=== PATIENT | female | born 1930 | race Caucasian/White ===

== ENCOUNTER 2018-04-28 08:11 | Emergency (ER) | payer OTHER ==
[~2018-04-28] VITALS: Ht 160 cm; Wt 64.4 kg
[~2018-04-28 08:11] MED LIST: ASPIRIN325 MG PO; BISOPROLOL-HCT1 EACH PO; CALCIUM500 MG PO; CIPRO500 MG PO; COZAAR25 MG PO; DAILY VITAMIN1 EAC3 PO; FLAGYL500 MG PO; FLUOXETINE HCL20 M1 PO; NORVASC10 MG PO; OMEGA 3 FISH O1 EACH PO; PRAVASTATIN SOD80 MG PO; TRAZODONE HCL100 MG PO; TRAZODONE HCL50 MG PO; TYLENOL WITH C1 EACH PO; ULTRAM 50MG50 MG PO; VITAMIN C500 M1 PO; VITAMIN D2000 UNI1 PO; VITAMIN E400 UNI2 PO; ZOFRAN ODT4 MG SL
--- NOTE | 2018-04-28 09:46 | Diagnostic Imaging Report ---
Exam: Left Knee 3 views. History: Status post fall, left knee pain Comparison: Left knee films 11/24/2011 Findings: 3 views of the left knee. There is decreased bone mineralization. Negative for acute, displaced fracture or dislocation. 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 No evidence of failure or loosening. No abnormal soft tissue calcification or mass. Small suprapatellar effusion. Impression: 1. Status post total knee replacement with intact hardware. No evidence of failure or loosening. 2. No acute, displaced fracture or dislocation. 3. Small suprapatellar effusion. Signed by: Dr. Jose Toribio M.D. on 04/28/2018 9:43 AM
[2018-04-28] MEDS ORDERED: ONDANSETRON HCL 4 MG ORAL DISINTEGRATING TAB PO ONE (10:00)
[2018-04-28] MEDS ORDERED: IBUPROFEN 400 MG TAB PO ONE (10:00)
[2018-04-28] MEDS ORDERED: HYDROCODONE/APAP 5MG-325MG TAB PO ONE (10:00)
[2018-04-28 10:41] VITALS: BP 127/73
== END 2018-04-28 10:58 | disposition home or self-care (01) ==
LOC: ER 08:11
DX: M25.562 Pain in left knee (principal); S83.422A Sprain of lateral collateral ligament of left knee, initial encounter; W01.0XXA Fall on same level from slipping, tripping and stumbling without subsequent striking against object, initial encounter; R26.2 Difficulty in walking, not elsewhere classified; I10 Essential (primary) hypertension
CPT/HCPCS: 99283

== ENCOUNTER → 2018-07-09 | Day surgery (SDC) | payer OTHER ==
[2018-06-28 14:17] LABS: BASOPHILS # (AUTO) 0.1 (0.0-0.1); BASOPHILS % 0.9 % (0.0-1.0); EOSINOPHILS # (AUTO) 0.5 (0.0-0.4); EOSINOPHILS % 5.9 % (0.0-6.0); HEMATOCRIT 41.7 % (34.2-44.1); LYMPHOCYTES # (AUTO) 2.1 (1.0-3.2); LYMPHOCYTES % 23.8 % (18.0-39.1); MEAN CORPUSCULAR HEMOGLOBIN 31.4 pg (28-32); MEAN CORPUSCULAR HGB CONC 33.6 g/dL (31-35); MEAN CORPUSCULAR VOLUME 93.5 fL (81-99); MONOCYTES # (AUTO) 0.8 (0.2-0.8); MONOCYTES % 9.4 % (4.4-11.3); NEUTROPHILS # (AUTO) 5.2 (2.1-6.9); NEUTROPHILS % 59.7 % (38.7-80.0); PLATELET COUNT 188 x10e3/uL (140-360); RED BLOOD COUNT 4.46 x10e6/uL (3.6-5.1); RED CELL DISTRIBUTION WIDTH 12.3 % (11.7-14.4)
[2018-06-28 14:35] LABS: BLOOD UREA NITROGEN 24 mg/dL (7-26); BUN/CREATININE RATIO 31 (6-25); CALCIUM 10.4 mg/dL (8.4-10.2); CARBON DIOXIDE 25 mmol/L (22-29); CHLORIDE 103 mmol/L (98-107); CREATININE, SERUM 0.78 mg/dL (0.57-1.11); EST GLOMERULAR FILTRATION RATE > 60 ML/MIN (60-); GLUCOSE 100 mg/dL (74-118); SODIUM 137 mmol/L (136-145)
--- NOTE | 2018-06-28 15:19 | Diagnostic Imaging Report ---
EXAMINATION: CHEST 2 VIEWS INDICATION: \S\PRE ADMIT \S\[id number] \S\[id number] COMPARISON: Chest radiograph 09/09/[address] abdomen and pelvis 06/04/2016 FINDINGS: PA and lateral views TUBES and LINES: None. LUNGS: Lungs are well inflated. Subsegmental atelectasis in the medial right lower lobe, new since prior exam. There is no evidence of pneumonia or pulmonary edema. PLEURA: No pleural effusion or pneumothorax. HEART AND MEDIASTINUM: The cardiomediastinal silhouette is unremarkable. BONES AND SOFT TISSUES: No acute osseous lesion. Soft tissues are unremarkable. UPPER ABDOMEN: No free air under the diaphragm. IMPRESSION: Subsegmental atelectasis in the medial right lower lobe. Signed by: Dr. Elza Hayes M.D. on 06/28/2018 3:16 PM
[~2018-07-09] MED LIST changes: +ACETAMINOPHEN 1000 MG/100 ML 100 ML IV ONE; +ACETAMINOPHEN/CODEINE 300MG - 30MG TAB ONE; +ATORVASTATIN CA80 MG PO; +DEXAMETHASONE SOD PHOS INJ 4 MG/ML VIAL ONE; +FENTANYL CITRATE/PF 100MCG/2 ML INJ ONE; +LIDOCAINE HCL 2% LOCAL INJ 5 ML SDV VIAL INJ ONE; +ONDANSETRON HCL INJ 2 MG/ML VIAL ONE; +PROPOFOL IV EMULSION 10 MG/ML 20 ML VIAL ONE; +SEVOFLURANE INHAL SOLN 250 ML PEN BTL ONE
--- NOTE | 2018-07-09 16:29 | Operative Report ---
DATE OF PROCEDURE: July 09, 2018 PREOPERATIVE DIAGNOSIS: Carcinoma of the right breast. POSTOPERATIVE DIAGNOSIS: Carcinoma of the right breast. OPERATIONS PERFORMED: 1. Right upper inner quadrantectomy with preoperative mammographic-guided needle localization and intraoperative specimen mammography. 2. Right axillary sentinel node mapping and biopsy. ANESTHESIA: General. COMPLICATIONS: None. ESTIMATED BLOOD LOSS: Minimal. DESCRIPTION OF PROCEDURE: With the patient lying in bed in the supine position under good general anesthesia, after having undergone a needle localization of the suspicious mass in the upper inner quadrant of the right breast, the right breast and axilla were prepped Betadine solution and draped in the usual manner. The area around the 1 o'clock position of the right breast was then infiltrated with 0.25% Marcaine with epinephrine. An incision was made. It was carried down through the subcutaneous tissue and the wire was then identified and followed to the area in question. The area in question was totally and completely encircled and widely removed, and the specimen was properly labeled and sent for specimen mammography. Specimen mammography revealed that the area in question was completely contained within the specimen. The whole area was thoroughly irrigated. Perfect hemostasis was ascertained. The breast tissue was then reapproximated with interrupted sutures of 2-0 chromic and the skin was closed with subcuticular 5-0 Vicryl. The patient had undergone a preoperative sentinel node mapping and the area in question was then identified and infiltrated with 0.25% Marcaine with epinephrine. An incision was made at the base of the right axilla, carried down through the subcutaneous tissue and through the superficial fascia and there were 2 lymph node groupings that were clearly and easily identifiable with the Neoprobe. Both of these were totally and completely removed. All bleeding points were electrocoagulated or ligated with 2-0 Vicryl and the specimen of sentinel nodes x2 were sent for pathological examination. The whole area was thoroughly irrigated. Perfect hemostasis was ascertained. The subcutaneous tissue and superficial fascia were approximated with interrupted sutures of 2-0 chromic and the skin was closed with subcuticular 5-0 Vicryl. Benzoin, Steri-Strips and dressings were applied. The sponge, lap and needle count was correct. Patient tolerated both procedures well and returned to the recovery room in stable condition. Job#: [id number] [place]
[2018-07-09 16:55] VITALS: BP 133/67
--- NOTE | 2018-07-11 09:34 | Diagnostic Imaging Report ---
#[id number] - [id number] SPECIMEN: 07/09/2018 Correlation is made to exams dated: 07/09/2018 localization - [facility] and 05/29/2018 mammogram - [facility]. The specimen contains the marker clip. IMPRESSION: SPECIMEN Follow-up with ACR/ACS guidelines. Jose Antonio Chaney Jr., D.O. cw/:07/10/2018 14:25:33 Catering Associate: Darlyn MCDANIEL(Antonio)(Franky), [facility]
--- NOTE | 2018-07-11 09:34 | Diagnostic Imaging Report ---
#[id number] - [id number] NEEDLE LOCALIZATION: 07/09/2018 PROCEDURE DESCRIPTION: The patient had a stereotactic biopsy of the right breast, at 3:00. Mammograms show a biopsy marker clip at the lesion location. Preoperative localization was requested. Written informed written consent was obtained from the patient, and a formal time out was taken to confirm patient identity and procedure to be perfomed. Using sterile technique, 1% lidocaine local anesthesia, and mammographic guidance, the biopsy clip was preoperatively localized with a hookwire. Final CC and LM mammograms were obtained to document wire location. A sterile bandage was placed over the wire and the patient was transferred from mammography with no immediate complications noted. Correlation is made to exams dated: 05/29/2018 mammogram and 05/29/2018 ultrasound biopsy - [facility]. IMPRESSION: NEEDLE LOCALIZATION Follow-up with ACR/ACS guidelines. Jose Antonio Chaney Jr., D.O. cw/:07/10/2018 14:24:35 Vacuum Cleaner Repairer: Darlyn PATTERSON)(Franky), [facility] [id number]
== END | disposition home or self-care (01) ==
LOC: OR 07:40
PROVIDERS: ATTEND Surgery
DX: D05.11 Intraductal carcinoma in situ of right breast (principal); Z17.0 Estrogen receptor positive status [ER+]; I10 Essential (primary) hypertension; F41.9 Anxiety disorder, unspecified; M19.90 Unspecified osteoarthritis, unspecified site; E78.4 Other hyperlipidemia; Z88.2 Allergy status to sulfonamides; Z01.810 Encounter for preprocedural cardiovascular examination; Z01.812 Encounter for preprocedural laboratory examination; Z01.811 Encounter for preprocedural respiratory examination
CPT/HCPCS: 19281; 19301; 36415; 38500; 71046; 76098; 80048; 85025; 88305; 88307; 93005; C1769; J1100; J2001; J2405

== ENCOUNTER 2018-11-11 08:08 | Emergency (ER) | payer OTHER ==
[~2018-11-11] VITALS: Ht 160 cm; Wt 64.4 kg
[~2018-11-11 08:08] MED LIST changes: -ACETAMINOPHEN 1000 MG/100 ML 100 ML IV ONE; -ACETAMINOPHEN/CODEINE 300MG - 30MG TAB ONE; -DEXAMETHASONE SOD PHOS INJ 4 MG/ML VIAL ONE; -FENTANYL CITRATE/PF 100MCG/2 ML INJ ONE; -LIDOCAINE HCL 2% LOCAL INJ 5 ML SDV VIAL INJ ONE; -ONDANSETRON HCL INJ 2 MG/ML VIAL ONE; -PROPOFOL IV EMULSION 10 MG/ML 20 ML VIAL ONE; -SEVOFLURANE INHAL SOLN 250 ML PEN BTL ONE
[2018-11-11 08:43] LABS: CLARITY,URINE CLEAR (CLEAR); COLOR,URINE YELLOW (YELLOW); LEUKOCYTE ESTERASE ,URINE NEGATIVE (NEGATIVE); NITRITE,URINE NEGATIVE (NEGATIVE); PROTEIN,URINE DIPSTICK NEGATIVE (NEGATIVE)
[2018-11-11 08:44] LABS: BILIRUBIN,URINE NEGATIVE (NEGATIVE); KETONES,URINE NEGATIVE (NEGATIVE); URINE UROBILINOGEN 0.2 mg/dL (0.2 - 1)
[2018-11-11 08:52] LABS: RBC,URINE 0-5 /HPF (0-5)
[2018-11-11] MEDS ORDERED: KETOROLAC TROMETHAMINE 30 MG/ML VIAL IV NR (09:07)
[2018-11-11] MEDS ORDERED: DIAZEPAM 5 MG TAB PO NR (09:15)
[2018-11-11] MEDS ORDERED: KETOROLAC TROMETHAMINE 60 MG/2 ML VIAL IM NR (11:45)
[2018-11-11 12:52] VITALS: BP 146/78
--- NOTE | 2018-11-11 14:58 | Diagnostic Imaging Report ---
Pt name: Bonita Colon : 1- CT LUMBAR SPINE WO CONTRAST HISTORY: Back pain COMPARISON: CT of the abdomen/pelvis 06/04/2016 TECHNIQUE: Axial CT images of the lumbar spine were obtained without contrast. Coronal and sagittal reconstructions obtained from the axial data. One or more of the following dose reduction techniques were used: Automated exposure control, adjustment of the mA and/or kV according to patient size, and/or utilization of iterative reconstruction technique. DISCUSSION: Bone demineralization limits evaluation. There are 5 nonrib-bearing lumbar vertebral bodies. Lumbar lordosis is preserved. Subtle lumbar dextroscoliosis is centered at L3. There is no significant subluxation. No definite acute fracture or compression deformity is seen. is seen. No gross spinal canal mass is seen. There is paraspinal muscle atrophy at the lumbosacral junction. The paravertebral and paraspinal soft tissues are otherwise unremarkable. Multilevel advanced spondylotic changes are most prominent at L4-L5 and L5-S1. There are moderate degenerative changes in the bilateral sacroiliac joints with partial fusion. L1-L2: Disc bulge without gross canal or foraminal stenosis. L2-L3: Disc bulge without gross canal or foraminal stenosis. L3-L4: At least mild canal stenosis due to disc bulge and ligamentum flavum thickening. Mild right and moderate left foraminal stenoses due to disc bulge and facet arthrosis. L4-L5: At least mild canal stenosis due to disc bulge and ligamentum flavum thickening. Mild to moderate bilateral foraminal stenoses due to disc bulge and facet arthrosis. L5-S1: Moderate to severe right and mild to moderate left foraminal stenoses due to disc bulge and facet arthrosis. No gross canal stenosis. A few small partially visualized fluid density lesion in the right hepatic lobe may be cysts. Surgical clips are seen at the gallbladder fossa. Right renal pelviectasis is present. Aortoiliac calcified atherosclerosis is present. IMPRESSION: 1. No acute osseous abnormalities. 2. Multilevel advanced spondylosis, most prominent at L4-L5 and L5-S1. Subtle dextroscoliosis is centered at L3. 3. Multilevel bilateral degenerative foraminal stenoses - moderate on the left at L3-L4 and moderate to severe on the right at L5-S1. 4. At least mild degenerative canal stenoses at L3-L4 and L4-L5. Signed by: Dr. Nik Armas M.D. on 11/11/2018 2:54 PM
== END 2018-11-11 12:55 | disposition home or self-care (01) ==
LOC: ER 08:08
DX: M54.5 Low back pain (principal); S39.012A Strain of muscle, fascia and tendon of lower back, initial encounter; M43.06 Spondylolysis, lumbar region; I10 Essential (primary) hypertension; Z86.73 Personal history of transient ischemic attack (TIA), and cerebral infarction without residual deficits
CPT/HCPCS: 72131; 81001; 99283; J1885

== ENCOUNTER 2018-12-02 18:44 | Emergency (ER) | payer MEDICARE ==
[~2018-12-02] VITALS: Ht 160 cm; Wt 64.4 kg
--- NOTE | 2018-12-02 20:45 | Diagnostic Imaging Report ---
Exams: Head and cervical spine CTs without IV contrast History: Trauma, fall, hit back of head Comparison studies: None available at the time of dictation. Technique: Axial images were obtained from the brain and cervical spine. Coronal and sagittal images reconstructed from the axial data. Dose modulation, iterative reconstruction, and/or weight based adjustment of the mA/kV was utilized to reduce the radiation dose to as low as reasonably achievable. Intravenous contrast: None Findings: Head CT: Scalp: Mild occipital scalp swelling. Bones: No fractures, blastic or lytic lesions. Extra-axial spaces: No masses. No fluid collections. Brain sulci: Appropriate for age. Ventricles: Normal in size and configuration. No hydrocephalus. Parenchyma: No mass, acute hemorrhage or acute cortical vascular insults. A few scattered and mildly confluent hypodensities in the supratentorial white matter are nonspecific but most compatible with chronic microvascular ischemic changes. There is a chronic lacunar infarct along the left thalamic capsular junction. Sellar/suprasellar region: No abnormalities. Craniocervical junction: The foramen magnum is patent. No Chiari one malformation. Cervical spine CT: Fractures: None. Soft tissues: No gross acute abnormalities. Atlantoaxial articulation: Intact. Alignment: Straightened cervical curvature may be positional. Minimal degenerative retrolisthesis of C4 on C5 and retrolisthesis of C5 on C6 Cervicomedullary junction: No abnormalities. The foramen magnum is patent. Vertebrae: No infection or neoplasm. Degenerative changes: Advanced degenerative changes at the at the atlantodental articulation and basion-dental interval with degenerative ossification with retrodental ligamentous thickening and calcification. Multilevel disc degeneration, worse/moderate at C5-C6 and at C6-C7. Small anterior osteophytes from C4 to C7 indent the prevertebral soft tissues. Posterior disc osteophyte complexes from C4 to C7 indent the thecal sac but do not result in significant canal stenosis. Advanced multilevel facet arthrosis with fused facets on the right from C2 to C5 and on the left at C3-C4. Uncovertebral and facet arthrosis result in multilevel foraminal stenosis (mild bilaterally at C3-C4, severe right C4-C5, moderate bilaterally at C5-C6, moderate left and mild right at C6-C7). Incidental findings: Lens replacements for previous cataract surgery. After carotid calcifications in the carotid siphons, common carotid arteries and in the left greater than right bulbs. Anatomical variant, slight retropharyngeal course of the ICA origins. IMPRESSION: Head CT: 1. Occipital scalp swelling without underlying fracture.. 2. No acute intracranial abnormalities. 3. Mild generalized volume loss. 4. Unchanged mild to moderate supratentorial chronic microvascular ischemic changes and chronic left thalamocapsular lacunar infarct. Cervical spine CT: 1. No acute abnormalities. 2. Advanced multilevel degenerative changes. 3. Cannot exclude ligament, spinal cord and or vascular abnormalities on the basis of this examination. Signed by: Dr. Hayes Gramajo M.D. on 12/02/2018 8:42 PM
[2018-12-02] MEDS ORDERED: HYDROCODONE/APAP 5MG-325MG TAB ONE (22:20)
[2018-12-02 22:28] VITALS: BP 147/51
[2018-12-02] MEDS ORDERED: HYDROCODONE/APAP 5MG-325MG TAB PO ONE (22:45)
== END 2018-12-02 22:37 | disposition home or self-care (01) ==
LOC: ER 18:44
DX: S00.83XA Contusion of other part of head, initial encounter (principal); W01.0XXA Fall on same level from slipping, tripping and stumbling without subsequent striking against object, initial encounter; Y93.E1 Activity, personal bathing and showering; Y92.002 Bathroom of unspecified non-institutional (private) residence as the place of occurrence of the external cause; I10 Essential (primary) hypertension; K21.9 Gastro-esophageal reflux disease without esophagitis; E78.5 Hyperlipidemia, unspecified; Z86.73 Personal history of transient ischemic attack (TIA), and cerebral infarction without residual deficits
CPT/HCPCS: 70450; 72125; 99283

== ENCOUNTER → 2018-12-07 | Outpatient (CLI) | payer MEDICARE ==
[~2018-12-07] MED LIST changes: +IOPAMIDOL 370 MG/ML 200 ML INFUS..BTL INJ ONE; +SODIUM CHLORIDE 0.9% 100 ML 100 ML ONE
[2018-12-07 15:15] LABS: BLOOD UREA NITROGEN 15 mg/dL (7-26); BUN/CREATININE RATIO 22 (6-25); CREATININE, SERUM 0.67 mg/dL (0.57-1.11); EST GLOMERULAR FILTRATION RATE > 60 ML/MIN (60-)
--- NOTE | 2018-12-07 16:45 | Diagnostic Imaging Report ---
CTA NECK HISTORY: Carotid stenosis COMPARISON: Head and cervical spine CT 12/02/2018 TECHNIQUE: CTA of the neck was performed with intravenous iodine based contrast. Coronal, sagittal, and oblique maximum intensity projection reformations were created. One or more of the following dose reduction techniques were used: Automated exposure control, adjustment of the mA and/or kV according to patient size, and/or utilization of iterative reconstruction technique. 100 mL of Isovue-370 were administered. DISCUSSION: If present, any cervical carotid stenosis will be measured as a percentage relative to the [place] artery distal to the stenosis. There are mild calcifications in the aortic arch and proximal great vessels. Right Carotid: There is mild calcified plaque at the right carotid bulb without significant stenosis. The right internal carotid artery has a retropharyngeal course. Left Carotid: Severe calcified plaque at the left carotid bulb causes near complete focal occlusion of the proximal left internal carotid artery (greater than 90% focal stenosis). The left internal carotid artery has a retropharyngeal course. Right vertebral artery: There is minimal calcification in the V1 and V2 segments. Otherwise patent and without abnormalities. The right vertebral artery is dominant. Left vertebral artery: Patent, no abnormalities. The left vertebral artery terminates as the left posterior inferior cerebellar artery, which is a normal variant. The intracranial arterial vasculature is partially visualized. Bilateral carotid siphon calcifications are present. 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 There is persistent circulation on the left. Additional findings: Both ocular lenses are thinned. The thyroid gland is atrophic with a few small hypodense nodules measuring up to 0.7 cm on the right. There are advanced degenerative changes throughout the cervical spine IMPRESSION: 1. Severe calcified plaque at the left carotid bulb causes near complete focal occlusion of the proximal left internal carotid artery (greater than 90% focal stenosis). 2. Mild right carotid bulb calcified plaque without significant stenosis. 3. Minimal cervical right vertebral artery calcification without significant stenosis. 4. 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 5. origin of the left posterior cerebral artery, a normal variant. Signed by: Dr. Nik Armas M.D. on 12/07/2018 4:42 PM
== END ==
LOC: CT 14:28
PROVIDERS: ATTEND Thoracic Surgery (Cardiothoracic Vascular Surgery)
DX: I65.23 Occlusion and stenosis of bilateral carotid arteries (principal)
CPT/HCPCS: 36415; 70498; 82565; 84520; Q9967

== ENCOUNTER → 2018-12-17 | Outpatient (CLI) | payer MEDICARE ==
[~2018-12-17] MED LIST changes: +ANASTROZOLE1 MG PO; +GELATIN SPONGE 12-7MM ONE; +HEPARIN SOD (PORCINE) 1000 UNIT/ML 30ML ONE; +HEPARIN SOD/SOD CHLORIDE 1,000 ML ONE; -IOPAMIDOL 370 MG/ML 200 ML INFUS..BTL INJ ONE; +LIDOCAINE HCL (LTA) 4 ML SOLN ONE; +LIDOCAINE HCL 1% 2 ML AMP ONE; +MUPIROCIN 2% OINT 22 GM TUBE ONE; +PROLIA60 MG/1 ML SC; +PROTAMINE SULFATE 10 MG/ML 5 ML VIAL ONE; -SODIUM CHLORIDE 0.9% 100 ML 100 ML ONE; +SODIUM CHLORIDE 0.9% 500ML 500 ML ONE; +THROMBIN FOR SOLN 5,000 UNIT VIAL ONE; +ZETIA10 MG PO; +[UNRECOGNIZED DRUG - OTHER] PO
== END ==
LOC: RAD 14:33
PROVIDERS: ATTEND Anesthesiology
DX: Z01.810 Encounter for preprocedural cardiovascular examination (principal)
CPT/HCPCS: 93306

== ENCOUNTER 2018-12-18 10:55 | Inpatient (IN) | payer MEDICARE ==
[2018-12-17 13:09] LABS: BASOPHILS # (AUTO) 0.1 (0.0-0.1); BASOPHILS % 0.9 % (0.0-1.0); EOSINOPHILS # (AUTO) 0.3 (0.0-0.4); EOSINOPHILS % 4.5 % (0.0-6.0); HEMATOCRIT 40.6 % (34.2-44.1); HEMOGLOBIN 13.6 g/dL (12.0-16.0); LYMPHOCYTES # (AUTO) 1.2 (1.0-3.2); LYMPHOCYTES % 17.4 % (18.0-39.1); MEAN CORPUSCULAR HEMOGLOBIN 31.2 pg (28-32); MEAN CORPUSCULAR HGB CONC 33.5 g/dL (31-35); MEAN CORPUSCULAR VOLUME 93.1 fL (81-99); MONOCYTES # (AUTO) 0.7 (0.2-0.8); MONOCYTES % 10.1 % (4.4-11.3); NEUTROPHILS # (AUTO) 4.6 (2.1-6.9); NEUTROPHILS % 66.8 % (38.7-80.0); PLATELET COUNT 200 x10e3/uL (140-360); RED BLOOD COUNT 4.36 x10e6/uL (3.6-5.1); RED CELL DISTRIBUTION WIDTH 12.8 % (11.7-14.4)
[2018-12-17 13:21] LABS: INR 1.01; PROTHROMBIN TIME 13.8 seconds (11.9-14.5)
[2018-12-17 13:22] LABS: ANION GAP 11.1 mmol/L (8-16); BLOOD UREA NITROGEN 21 mg/dL (7-26); BUN/CREATININE RATIO 32 (6-25); CALCIUM 9.4 mg/dL (8.4-10.2); CARBON DIOXIDE 25 mmol/L (22-29); CHLORIDE 107 mmol/L (98-107); CREATININE, SERUM 0.66 mg/dL (0.57-1.11); EST GLOMERULAR FILTRATION RATE > 60 ML/MIN (60-); GLUCOSE 99 mg/dL (74-118); PARTIAL THROMBOPLASTIN TIME 37.1 seconds (23.8-35.5); POTASSIUM 4.1 mmol/L (3.5-5.1); SODIUM 139 mmol/L (136-145)
[~2018-12-18] VITALS: Ht 160 cm; Wt 63.0 kg
[~2018-12-18 10:55] MED LIST changes: -ANASTROZOLE1 MG PO; -GELATIN SPONGE 12-7MM ONE; -HEPARIN SOD (PORCINE) 1000 UNIT/ML 30ML ONE; -HEPARIN SOD/SOD CHLORIDE 1,000 ML ONE; -LIDOCAINE HCL (LTA) 4 ML SOLN ONE; -LIDOCAINE HCL 1% 2 ML AMP ONE; -MUPIROCIN 2% OINT 22 GM TUBE ONE; -PROLIA60 MG/1 ML SC; -PROTAMINE SULFATE 10 MG/ML 5 ML VIAL ONE; -SODIUM CHLORIDE 0.9% 500ML 500 ML ONE; -THROMBIN FOR SOLN 5,000 UNIT VIAL ONE; -ZETIA10 MG PO; -[UNRECOGNIZED DRUG - OTHER] PO
[2018-12-18] MEDS ORDERED: ZETIA10 MG PO (12:25)
[2018-12-18] MEDS ORDERED: ANASTROZOLE1 MG PO (12:26)
[2018-12-18] MEDS ORDERED: [UNRECOGNIZED DRUG - OTHER] PO (12:26)
[2018-12-18] MEDS ORDERED: PROLIA60 MG/1 ML SC (12:27)
[2018-12-18] MEDS ORDERED: VANCOMYCIN 1GM/NS 250 ML 250 ML ONE (13:14)
--- NOTE | 2018-12-18 14:35 | Progress Note ---
DATE: 12/18/2018 Cardiology Consultation REASON FOR CONSULTATION: Perioperative cardiovascular management. CONSULTING PHYSICIAN: Micah Cruz, Interventional Cardiology. HISTORY OF PRESENT ILLNESS: Ms. Colon is a pleasant 88-year-old woman with history of hypertension, remote history of CVA 20 years ago, and dyslipidemia, who presents to [facility] for elective left carotid artery endarterectomy to be performed by Dr. Hirsch today. We have been asked to assist with perioperative management. Bonita denies any chest discomfort or shortness of breath; denies lightheadedness, palpitations, syncope, leg edema or leg discomfort. She is able to ambulate at home with no exertional complaints. She has been otherwise somewhat sedentary. She denies any prior history of cardiac conditions. EKG shows normal sinus rhythm with nonspecific repolarization abnormalities, possibly related to left ventricular hypertrophy. Her echocardiogram reveals preserved left ventricular systolic function with aortic valve sclerosis without stenosis and mild atrioventricular valve insufficiency. REVIEW OF SYSTEMS: A 12-system review is negative except for as noted above. PAST MEDICAL HISTORY: As per HPI. SOCIAL HISTORY: Former smoker, quit many decades ago. No alcohol or drugs. FAMILY HISTORY: Per family's report. Daughter is at bedside. PHYSICAL EXAMINATION: VITAL SIGNS: Afebrile. Blood pressure 154/82, respiratory rate 18, heart rate 65. GENERAL: In no acute distress, alert. NECK: No JVD. Left carotid bruit. CHEST: Clear to auscultation. CARDIOVASCULAR: Regular rate and rhythm. Normal S1 and S2. No S3 or S4. Systolic ejection murmur. ABDOMEN: Soft, nontender. EXTREMITIES: No edema. Warm distal extremities. HOME MEDICATIONS: Reviewed. AVAILABLE STUDIES: Reviewed. ASSESSMENT: 1. Left carotid artery critical stenosis. 2. Aortic valve sclerosis without stenosis. 3. Hypertension. 4. Remote history of cerebrovascular accident. RECOMMENDATIONS: 1. The patient has moderate risk for adverse cardiovascular outcomes with carotid surgery. 2. Perioperative beta-blockers with esmolol drip is advised and discussed with the Anesthesia team to manage her perioperative risk. In the perioperative period, labile heart rate and blood pressure should be managed with short half-time medication drips including p.r.n. atropine, p.r.n. dopamine, p.r.n. nitroglycerin/nicardipine and p.r.n. esmolol depending on fluctuation with close monitoring in the ICU postoperatively. Antiplatelet therapy and statin therapy are also advised in the perioperative period. We will follow closely. I have discussed with ICU staff once patient is received to please call me with any questions or concerns with regard to her cardiovascular management. Questions addressed today with the patient and daughter. MD SILVINA Johns/PILYL /[id number]
[2018-12-18] MEDS ORDERED: FENTANYL CITRATE/PF 100MCG/2 ML INJ ONE ×2 (16:02→18:36)
[2018-12-18] MEDS ORDERED: PROPOFOL IV EMULSION 10 MG/ML 20 ML VIAL ONE (17:35)
[2018-12-18] MEDS ORDERED: ONDANSETRON HCL INJ 2MG/ML 2ML 2 MG/ML VIAL ONE (17:35)
[2018-12-18] MEDS ORDERED: EPHEDRINE SULFATE INJ 50 MG/10 ML SYR ONE (17:35)
[2018-12-18] MEDS ORDERED: ROCURONIUM BROMIDE 10 MG/ML 5ML VIAL ONE (17:35)
[2018-12-18] MEDS ORDERED: DEXAMETHASONE SOD PHOS INJ 4 MG/ML VIAL ONE (17:35)
[2018-12-18] MEDS ORDERED: DESFLURANE 240 ML BTL INH ONE (17:35)
[2018-12-18 17:36] LABS: BASOPHILS % 0.4 % (0.0-1.0); EOSINOPHILS # (AUTO) 0.1 (0.0-0.4); EOSINOPHILS % 0.6 % (0.0-6.0); HEMATOCRIT 36.3 % (34.2-44.1); HEMOGLOBIN 12.3 g/dL (12.0-16.0); LYMPHOCYTES # (AUTO) 0.8 (1.0-3.2); MEAN CORPUSCULAR HEMOGLOBIN 31.1 pg (28-32); MEAN CORPUSCULAR HGB CONC 33.9 g/dL (31-35); MEAN CORPUSCULAR VOLUME 91.9 fL (81-99); MONOCYTES # (AUTO) 0.4 (0.2-0.8); MONOCYTES % 4.5 % (4.4-11.3); NEUTROPHILS # (AUTO) 8.3 (2.1-6.9); NEUTROPHILS % 86.2 % (38.7-80.0); PLATELET COUNT 158 x10e3/uL (140-360); RED BLOOD COUNT 3.95 x10e6/uL (3.6-5.1); RED CELL DISTRIBUTION WIDTH 12.6 % (11.7-14.4)
[2018-12-18 17:55] LABS: ALANINE AMINOTRANSFERASE 316 IU/L (0-55); ALBUMIN 3.4 g/dL (3.5-5.0); ALBUMIN/GLOBULIN RATIO 1.3 (0.8-2.0); ALKALINE PHOSPHATASE 83 IU/L (40-150); ANION GAP 11.7 mmol/L (8-16); BLOOD UREA NITROGEN 16 mg/dL (7-26); BUN/CREATININE RATIO 30 (6-25); CALCIUM 8.5 mg/dL (8.4-10.2); CARBON DIOXIDE 21 mmol/L (22-29); CHLORIDE 109 mmol/L (98-107); CREATININE, SERUM 0.54 mg/dL (0.57-1.11); EST GLOMERULAR FILTRATION RATE > 60 ML/MIN (60-); GLUCOSE 155 mg/dL (74-118); POTASSIUM 3.7 mmol/L (3.5-5.1); SODIUM 138 mmol/L (136-145)
[2018-12-18] MEDS ORDERED: KETAMINE HCL INJ 50 MG/ML 10 ML VIAL ONE (18:36)
[2018-12-18] MEDS ORDERED: MIDAZOLAM HCL 2 MG/2 ML VIAL ONE (18:36)
--- NOTE | 2018-12-18 20:48 | NUR ---
PATIENT WAS TRANSFERRED TO ROOM 193. ORDERS TO BE PLACED IN COMPUTER. IN EMAR VANCOMYCIN NOT CHARTED GIVEN. CALLED PHARMACY TO ASK IF IT WAS DRAWN. RADHA LEYVA WITHDREW THE VANCOMYCIN AT 1312.
[2018-12-18 20:50] VITALS: BP 128/61
[2018-12-18 21:00] VITALS: BP 127/56
--- NOTE | 2018-12-18 21:15 | NUR ---
RECEIVED REPORT SOON AFTER MY SHIFT STARTED ON THIS PATIENT FROM PACU. RUSHED REPORT GIVEN. CURRENTLY WAITING FOR ROOM TO BE CLEANED
[2018-12-18] MEDS ORDERED: HYDROCODONE/APAP 5MG-325MG TAB PO PRN (21:30)
--- NOTE | 2018-12-18 21:30 | NUR ---
CALLED DR DU PER DAYSHIFT WHEN PATIENT ARRIVED TO THE UNIT. UPDATED HIM ON PATIENT CARE AND VITAL SIGNS. NEW ORDERS RECEIVED AND NOTED. START A NITRO DRIP PER PROTOCOL IF PATIENTs SBP IS GREATER THAN 170 IF LESS THAN 90 TO START LEVOPHED DRIP PER PROTOCOL, GIVE ATROPINE 0.5MG Q1H PRN IF HEART RATE LESS THAN 50. I ALSO INFORMED HIM THAT PATIENTs RIGHT EYE IS VERY RED AND IRRITATED AND PACU WAS AWARE OF THIS ISSUE AND HAD WASHED HER EYE WITH NS. ORDER FOR NATURAL TEARS PRN. ALL ORDERS WERE READ BACK AND CONFIRMED
[2018-12-18] MEDS ORDERED: VANCOMYCIN 1GM/NS 250 ML 250 ML IV ONE (21:45)
[2018-12-18] MEDS ORDERED: ONDANSETRON HCL INJ 2MG/ML 2ML 2 MG/ML VIAL IV PRN (21:45)
[2018-12-18] MEDS ORDERED: SODIUM CHLORIDE 0.9% 1000ML 1,000 ML IV SCH (21:45)
[2018-12-18] MEDS ORDERED: LABETALOL HCL 20 MG/4 ML SYRINGE IV PRN (21:45)
--- NOTE | 2018-12-18 21:50 | NUR ---
CALLED AND SPOKE WITH THE PATIENTs DAUGHTER ENSURING SHE WAS OK WITH DR DU FOLLOWING HER CASE OR DID SHE REQUEST UJSTINA. SHE STATED NO THAT HER MOTHER NEVER HAD A VERIFYING SPECIALIST BEFORE AND THAT DR DU CAN CONTINUE TO FOLLOW THE PATIENT. SO ORDERS TO CONSULT DR HORN IS DC'D AND CONSULTING VERIFYING SPECIALIST FOR ANA LAURA IS ORDERED.
[2018-12-18 22:00] VITALS: BP 117/49
[2018-12-18] MEDS: MORPHINE SULFATE INJ 4 MG/ML INJ 1ML IV PRN (22:13)
[2018-12-18 23:00] VITALS: BP 134/60
[2018-12-18 23:16] LABS: BASOPHILS % 0.2 % (0.0-1.0); EOSINOPHILS # (AUTO) 0.2 (0.0-0.4); HEMATOCRIT 36.4 % (34.2-44.1); HEMOGLOBIN 12.2 g/dL (12.0-16.0); LYMPHOCYTES # (AUTO) 0.8 (1.0-3.2); LYMPHOCYTES % 8.3 % (18.0-39.1); MEAN CORPUSCULAR HEMOGLOBIN 30.4 pg (28-32); MEAN CORPUSCULAR HGB CONC 33.5 g/dL (31-35); MEAN CORPUSCULAR VOLUME 90.8 fL (81-99); MONOCYTES # (AUTO) 0.7 (0.2-0.8); MONOCYTES % 7.7 % (4.4-11.3); NEUTROPHILS # (AUTO) 7.6 (2.1-6.9); NEUTROPHILS % 81.6 % (38.7-80.0); PLATELET COUNT 171 x10e3/uL (140-360); RED BLOOD COUNT 4.01 x10e6/uL (3.6-5.1); RED CELL DISTRIBUTION WIDTH 12.4 % (11.7-14.4)
[2018-12-18 23:30] LABS: ALANINE AMINOTRANSFERASE 1030 IU/L (0-55); ALBUMIN 3.4 g/dL (3.5-5.0); ALBUMIN/GLOBULIN RATIO 1.3 (0.8-2.0); ALKALINE PHOSPHATASE 104 IU/L (40-150); ANION GAP 11.8 mmol/L (8-16); BLOOD UREA NITROGEN 16 mg/dL (7-26); CALCIUM 8.5 mg/dL (8.4-10.2); CARBON DIOXIDE 22 mmol/L (22-29); CHLORIDE 107 mmol/L (98-107); GLUCOSE 128 mg/dL (74-118); POTASSIUM 3.8 mmol/L (3.5-5.1); SODIUM 137 mmol/L (136-145)
[2018-12-19] VITALS (17 sets, daily range): BP systolic 107–167; BP diastolic 59–93
[2018-12-19 00:29] LABS: BUN/CREATININE RATIO 29 (6-25)
[2018-12-19 00:42] LABS: CREATININE, SERUM 0.54 mg/dL (0.57-1.11); EST GLOMERULAR FILTRATION RATE > 60 ML/MIN (60-)
--- NOTE | 2018-12-19 00:49 | NUR ---
BOTH CONSULTING DOCTORS WERE NOTIFIED, DR MONTELONGO AND DR DU
[2018-12-19] MEDS: MORPHINE SULFATE INJ 4 MG/ML INJ 1ML IV PRN (02:07)
--- NOTE | 2018-12-19 02:48 | Operative Report ---
DATE OF PROCEDURE: 12/18/2018 SURGEON: Yair Hirsch MD ANODE BUILDER: Eric Mckeon. PREOPERATIVE DIAGNOSIS: Severe left carotid artery stenosis. POSTOPERATIVE DIAGNOSIS: Severe left carotid artery stenosis. TITLE OF OPERATION: Left carotid endarterectomy. DESCRIPTION OF OPERATION: After the satisfactory accomplishment of general anesthesia, the patient's left neck was prepped and draped in a sterile fashion. A standard left carotid incision was made along the anterior border of the sternomastoid muscle. The incision was carried down through the subcutaneous tissues and fascia to expose the left common carotid artery. The vessel was dissected free from the surrounding tissues and looped with the vessel loop. The dissection was carried distally to expose the internal carotid artery and the external carotid artery and its branches. Care was taken to identify and preserve all nerve structures in the region. Systemic heparin was given through a central vein canula for the purposes of anticoagulation. The common external and internal carotid arteries were briefly crossclamped. A long incision was made in the common carotid artery and carried distally through the bifurcation and well up into the internal carotid artery. A severely obstructing, ulcerated plaque was quickly located in the right carotid artery. The plaque extended well up into the internal carotid artery. The plaque was carefully removed using standard endarterectomy techniques. Following this, an indwelling shunt was inserted into the common carotid artery proximally and the internal carotid artery distally, thereby re-establishing blood flow to the right side of the brain for the remainder of the case. The surface of the vessel was then smoothed and all loose debris was carefully removed. Heparinized saline flushes were routinely employed. A previously constructed Dacron patch was brought into the operative field and used to close the arteriotomy site. Running 7-0 Prolene was used to for this patch closure. Prior to completing the closure, the shunt was removed and the vessel was flushed free from all air and debris. Once the sutures were tied, excellent pulses were located within the patch area and beyond. Protamine was given to counteract the effects of the heparin. The wound was thoroughly irrigated with antibiotic solution and closed in layers with interrupted 2-0 Vicryl for the deep tissues, running 2-0 Vicryl for the subcutaneous tissues, and a Monocryl subcuticular stitch for the skin. The patient tolerated the procedure well and was returned to the Intensive Care Unit in good condition. MD JUDE Damon/NASIR /[id number]
--- NOTE | 2018-12-19 04:00 | NUR ---
WHILE I WAS ON BREAK, FERNANDA RN-CHARGE NURSE CALLED FOR ME TO COME BACK THAT THIS PATIENT HAD REMOVED HER ARTERIAL LINE. ONCE ARRIVING INTO THE PATIENTs ROOM, PATIENT SITTING ON SIDE OF THE BED. PRESSURE APPLIED TO RIGHT RADIAL ARTERY SITE, THEN COVERED WITH GAUZE AND WRAPPED WITH COBAN DRESSING. CHANGED LINEN, LIGHT SPONGE BATH GIVEN TO PATIENT AND A NEW GOWN PLACED ON PATIENT AND PLACED BACK INTO BED WITH MILK COLLECTOR IN PLACE PATIENT HAS BECOME MORE CONFUSED THROUGH THE NIGHT. PATIENT SEEMS TO HAVE A INTOLERANCE TO MORPHINE. WILL HAVE MORPHINE DC'D FROM PATIENTs ORDERS. I CLEANED AND WIPED DOWN TABLES AND BED INCLUDING FLOOR WHERE BLOOD WAS DROPPED. CALLED PATIENTs DAUGHTER AND ASKED IF SHE COULD COME AND THAT THE PATIENT WAS WANTED HER TO COME SIT WITH HER, INFORMING THE DAUGHTER OF THIS INCIDENT AT THAT TIME. Addendum: 12/19/18 at 0616 by Blessing Ren RN PATIENT HAD REMOVED DRESSING TO LEFT SIDE OF NECK. I PLACED ANOTHER DRY DRESSING TO AREA AND PLACED THE ICE PACK BACK ON TOP OF DRESSING.
[2018-12-19 05:07] LABS: BASOPHILS % 0.4 % (0.0-1.0); EOSINOPHILS % 0.1 % (0.0-6.0); HEMATOCRIT 36.4 % (34.2-44.1); HEMOGLOBIN 12.1 g/dL (12.0-16.0); LYMPHOCYTES # (AUTO) 1.3 (1.0-3.2); LYMPHOCYTES % 13.1 % (18.0-39.1); MEAN CORPUSCULAR HEMOGLOBIN 30.9 pg (28-32); MEAN CORPUSCULAR HGB CONC 33.2 g/dL (31-35); MEAN CORPUSCULAR VOLUME 92.9 fL (81-99); MONOCYTES # (AUTO) 1.1 (0.2-0.8); MONOCYTES % 10.7 % (4.4-11.3); NEUTROPHILS # (AUTO) 7.4 (2.1-6.9); NEUTROPHILS % 75.5 % (38.7-80.0); PLATELET COUNT 179 x10e3/uL (140-360); RED BLOOD COUNT 3.92 x10e6/uL (3.6-5.1); RED CELL DISTRIBUTION WIDTH 12.4 % (11.7-14.4)
[2018-12-19 05:33] LABS: ALANINE AMINOTRANSFERASE 908 IU/L (0-55); ALBUMIN 3.5 g/dL (3.5-5.0); ALBUMIN/GLOBULIN RATIO 1.2 (0.8-2.0); ALKALINE PHOSPHATASE 113 IU/L (40-150); BLOOD UREA NITROGEN 15 mg/dL (7-26); BUN/CREATININE RATIO 26 (6-25); CALCIUM 8.8 mg/dL (8.4-10.2); CARBON DIOXIDE 22 mmol/L (22-29); CHLORIDE 106 mmol/L (98-107); CREATININE, SERUM 0.57 mg/dL (0.57-1.11); EST GLOMERULAR FILTRATION RATE > 60 ML/MIN (60-); GLUCOSE 103 mg/dL (74-118); SODIUM 136 mmol/L (136-145)
--- NOTE | 2018-12-19 06:00 | NUR ---
PATIENT WAS GIVEN PO FLUIDS AFTER 0000 AND TOLERATED IT WELL. ADVANCED DIET TO CLEAR LIQUIDS ORDERED
[2018-12-19] MEDS ORDERED: AMLODIPINE BESYLATE 5 MG TAB PO ONE (08:30)
--- NOTE | 2018-12-19 11:20 | NUR ---
ARRIVED VIA WC FROM ICU 193, AA&OX3 AT THIS TIME, RA, DRESSING CDI TO LEFT NECK, ICE PACK IN PLACE, TELE #[address], DENIES PAIN AT THIS TIME, ORIENTED TO ROOM AND CALL LIGHT SYSTEM, CALL LIGHT WITHIN REACH, FAMILY AT SIDE
--- NOTE | 2018-12-19 13:15 | Consultation ---
DATE OF CONSULTATION: Pulmonary Critical Care Consultation CHIEF COMPLAINT: Cerebrovascular accident and TIAs. HISTORY OF PRESENT ILLNESS: The patient is an 88-year-old woman. She has a history of hypertension. She also has a history of atrial fibrillation. She had a prior stroke as well as some transient ischemic episodes. Preoperative evaluation showed a 90% to 95% left carotid artery stenosis. The patient feels left carotid stenosis. The patient went for a carotid endarterectomy. The shunt was used and the Dacron patch was placed. There were no intraoperative complications. The patient is now postop in the ICU. She complains of a mild headache, but no focal weakness. PAST SURGICAL HISTORY: 1. Status post hysterectomy. 2. Status post cholecystectomy. 3. Status post lumpectomy for breast cancer. PAST MEDICAL HISTORY: 1. Cerebrovascular accident. 2. Hypertension. 3. History of prior breast cancer. SOCIAL HISTORY: The patient is not an active smoker. She did smoke remotely in the past. She is not a drinker. ALLERGIES: SHE IS ALLERGIC TO SULFA. FAMILY HISTORY: There is a family history of coronary artery disease. REVIEW OF SYSTEMS: She has some headaches postoperatively. She has no fevers. She has no neck pain. She does have some incisional pain. She has no chest pain. She has no difficulty breathing. She has no nausea or vomiting. There are no focal neurological complaints. PHYSICAL EXAMINATION: VITAL SIGNS: The patient is afebrile. The vital signs are stable. HEENT: Shows no facial swelling or erythema. Nasal mucosa is normal. The oropharynx is normal. LYMPHATIC: Shows no submandibular, cervical, or supraclavicular adenopathy. CARDIAC: Reveals a regular rate and rhythm with normal S1 and S2. There are no murmurs or rubs. LUNGS: Auscultation of lungs reveals clear breath sounds bilaterally. There is no wheezing. ABDOMEN: Soft and nontender. There is no rebound or guarding. EXTREMITIES: Show no leg edema or calf tenderness. IMPRESSION: 1. Prior transient ischemic attacks and carotid endarterectomy. 2. Atrial fibrillation. 3. Hypertension. PLAN: 1. Continue postoperative care. 2. Monitor blood pressure. 3. Continue current pain regimen. 4. Out of bed as tolerated. Jonny Son MD LM/[facility] /[id number]
--- NOTE | 2018-12-19 15:20 | Progress Note ---
DATE: 12/19/2018 Cardiology Progress Note SUBJECTIVE: No complaints today. Denies chest pain or shortness of breath. Minimal discomfort at left carotid endarterectomy site. OBJECTIVE: VITAL SIGNS: Temperature 98.6, heart rate 75, blood pressure 128/77, respiratory rate 17, and O2 saturation 100%. GENERAL: In no acute distress, alert. NECK: No JVD. CHEST: Clear to auscultation. CARDIOVASCULAR: Regular rate and rhythm. Normal S1, S2. Systolic ejection murmur. ABDOMEN: Soft, nontender. EXTREMITIES: No edema. The left carotid endarterectomy site is covered with dressings. MEDICATIONS: Cardiovascular medications reviewed. LABORATORY DATA: Sodium 136, potassium 4, chloride 106, bicarbonate 22, BUN 15, creatinine 0.5, and glucose 103. White blood cell count 9.8, hemoglobin 12.1, and platelets are 179. INR 1.01. AST 1108, ALT 908, and alkaline phosphatase 113. ASSESSMENT: 1. Significantly abnormal liver function tests concerning for shock liver. 2. Status post left carotid endarterectomy, recovering well with adequate hemodynamics. 3. Hypertension. 4. Dyslipidemia. 5. Anemia. RECOMMENDATIONS: 1. Hold statin given abnormal LFTs. 2. Continue rest of cardiovascular medications. Holding parameters for blood pressure medication if systolic less than 120. She has been stable hemodynamically over the last several hours. Continue care. MD SILVINA Johns/NASIR /[id number]
--- NOTE | 2018-12-19 16:04 | NUR ---
TELEPHONED MD Dominga MONTELONGO PER DAUGHTER REQUEST TO SEE IF PT "CAN OR IS GOING HOME" TODAY OR TOMORROW, SPOKE WITH MILES, AWAITING CALL BACK
[2018-12-19] MEDS ORDERED: AMLODIPINE BESYLATE 5 MG TAB PO SCH (17:00)
--- NOTE | 2018-12-19 17:11 | NUR ---
TELEPHONED MD CARTY FOR CLARIFICATION OF POSSIBLE DISCHARGE ORDERS, AWAITING CALL BACK, SPOKE WITH MIRIAM
--- NOTE | 2018-12-19 18:19 | NUR ---
ICE PACK APPLIED PER MD ORDER , NO CHANGE IN CONDITION, CALL LIGHT WITHIN REACH
[2018-12-19] MEDS ORDERED: ATORVASTATIN 40 MG TAB PO SCH (21:00)
[2018-12-19] MEDS ORDERED: NON-FORMULARY MEDICATION (Atorvastatin Calcium 80 MG) PO SCH (21:00)
[2018-12-19] MEDS ORDERED: ASPIRIN 325 MG TAB PO SCH (21:00)
[2018-12-19] MEDS: AMLODIPINE BESYLATE 5 MG TAB PO SCH (21:17)
[2018-12-20] VITALS: BP 147/64
--- NOTE | 2018-12-20 00:20 | NUR ---
ASSISTED THE PT TO USE BATH ROOM.VOIDED.PAIN VOICED &/10.PAIN MEDICATION GIVEN.BED ALARM ON.BED LOCKED AND IN LOWEST POSITION.PHONE AND CALL LIGHT WITHIN REACH.INSTRUCTED TO CALL FOR ASSISTANCE NEEDED.
[2018-12-20 04:00] VITALS: BP 143/67
--- NOTE | 2018-12-20 06:50 | NUR ---
Report given to the oncoming rn.walking rounds done.stable condition.
--- NOTE | 2018-12-20 07:15 | NUR ---
pt alert resp even and unlabored at this time no distress noted, pt easily aroused to name, pt family member at bedside, pt call light in reach.
[2018-12-20 07:40] VITALS: BP 135/60
[2018-12-20] MEDS: AMLODIPINE BESYLATE 5 MG TAB PO SCH (08:19)
[2018-12-20 08:24] VITALS: BP 135/60
[2018-12-20] MEDS ORDERED: ACETAMINOPHEN 325 MG TAB PO PRN (08:45)
[2018-12-20 12:38] VITALS: BP 134/62
--- NOTE | 2018-12-20 13:30 | NUR ---
CM SPOKE TO PATIENT AT BEDSIDE REGARDING IMM. PATIENT GIVEN EXPLANATION AT BEDSIDE AND VERBALLY UNDERSTOOD BUT REFUSED TO SIGN IMM LETTER. VANESSA RN, BEDSIDE NURSE WITNESSED VERBAL UNDERSTANDING BUT REFUSAL TO SIGN. PATIENT INFORMED THAT IT IS NOT A LETTER OF CONSENT FOR A PROCEDURE OR TREATMENT, JUST A LETTER INFORMING HER OF HER RIGHTS AN INPATIENT AND PATIENT AGAIN REFUSED TO SIGN. REFUSAL NOTED ON DOCUMENT AND DOCUMENT PLACED IN CHART.
--- NOTE | 2018-12-20 13:40 | NUR ---
pt amb in [facility], no distress noted.
--- NOTE | 2018-12-20 13:42 | NUR ---
CASE MANAGEMENT INITIAL ASSESSMENT Market Development Executive to bedside to discuss plan of care with patient/family. CM/SW role and care transitions discussed. Anticipated discharge plan discussed along with duration of care. CM/SW discussed patients right to make decisions in care. CM work hours given. Patient lives: PATIENT LIVES WITH DAUGHTER IN [place], [place] Admit/Transfer: ED Hospital/ER visits since last admit: NO POA/Emergency contact: MELISSA BAUM- [phone] Current/Previous Home Health: NONE AT THIS TIME PCP/Follow-up Care: DR. MARY HOWELL Current/Previous DME: [facility] Medications (referring to index hospitalization or the first time you were in the hospital) a. Were changes made in your medications when you were in the hospital on [date of index hospitalization]? Yes No Not sure Explain: Note: If no or not sure, please skip to question d b. Did you understand the changes? Yes No Explain: c. Were you able to obtain your new medications right away? Yes Non/a SNF only Explain: d. Were you able to take your medications like the doctor wanted you to? Yes No Explain: e. Did the hospital give you an accurate, easy to understand list of medications when you left? Yes No n/a SNF only Explain: Scale of 1-10 how comfortable does patient feel with disease management in outpatient setting: Other Services: NONE Employment Status: RETIRED Areas of Concerns: NONE AT THIS TIME Referral Needs: NONE AT THIS TIME Education Needs: NONE IMM/[place] given and signed (if applicable): IMM EXPLAINED BUT PATIENT REFUSED TO SIGN Goal for discharge: DISCHARGE HOME WITH DAUGHTER AND NO NEEDS CM left business card at the bedside with contact information. Name and number was also written on the patients whiteboard. Patient verbalized understanding of discussion. CM will follow-up with ongoing discharge and transition of care needs.
[2018-12-20 16:33] VITALS: BP 139/63
--- NOTE | 2018-12-20 17:40 | NUR ---
Dr. Son here to dc pt.
--- NOTE | 2018-12-20 17:40 | NUR ---
pt discharged home, with prescription, pt and educated no medications and was asked to follow up with his liberal arts and humanities chair and PCP, iv site removed, no swelling, no redness to site.
--- NOTE | 2018-12-21 04:18 | Progress Note ---
DATE: 12/20/2018 Cardiology Progress Note SUBJECTIVE: Denies chest pain or shortness of breath. No complaints today. Denies any new episodes of weakness, numbness, changes in speech, vision, or gait. Mild discomfort at the left carotid endarterectomy site. OBJECTIVE: VITAL SIGNS: Temperature 98.6, heart rate 78, blood pressure 134/62, respiratory rate 18, O2 saturation 96%. GENERAL: In no acute distress, alert, active. NECK: No JVD. Left carotid endarterectomy scar covered with dressings. CHEST: Clear to auscultation. CARDIOVASCULAR: Regular rate and rhythm. Normal S1 and S2. Systolic ejection murmur. ABDOMEN: Soft, nontender. EXTREMITIES: Warm. No edema. CARDIOVASCULAR MEDICATIONS: Aspirin 325 mg at bedtime, amlodipine 5 mg every 12 hours, and labetalol 5 mg q.4 hours as needed. LABORATORY DATA: Sodium 136, potassium 4, chloride 106, bicarbonate 22, BUN 15, creatinine 0.57, glucose 103. White blood cells 9.8, hemoglobin 12.1, platelets 179. INR 1.01. AST 1108 from yesterday and ALT was 908, and alkaline phosphatase 113, total bilirubin was 1.1 all from yesterday. ASSESSMENT: 1. Carotid artery disease, status post left carotid endarterectomy. 2. Hypertension. 3. Aortic valve sclerosis without stenosis. 4. Chronic diastolic heart failure. 5. Abnormal LFTs. RECOMMENDATIONS: 1. Gradually resume home antihypertensives with holding parameters, systolic blood pressure less than 120 using a staggered approach to medication intake. I discussed with the patient and nursing staff. 2. Continue anti-platelet agents. 3. Hold off on statin for now given significantly abnormal LFTs, and suspect shock liver related during surgery, however, workup at the discretion of Primary Service as outpatient do advise follow up LFTs. Once normalized, can challenge with statin at that time. Also discussed with patient and nursing staff. Micah Cruz MD [facility] /[id number]
--- NOTE | 2018-12-21 16:20 | Discharge Summary ---
DISCHARGE MEDICATIONS: 1. Amlodipine 10 mg p.o. daily. 2. Anastrozole 1 mg p.o. daily. 3. Vitamin C 500 mg p.o. daily. 4. Aspirin 325 mg p.o. daily. 5. Bisoprolol/hydrochlorothiazide 2.5/6.25, 1 p.o. b.i.d. 6. Vitamin D3 2000 units p.o. daily. 7. Prolia 60 mg daily. 8. Zetia 10 mg p.o. daily. 9. Fluoxetine 20 mg p.o. daily. 10. Losartan 25 mg p.o. b.i.d. 11. Trazodone 50 mg p.o. at bedtime. 12. Vitamin E 400 mg p.o. daily. 13. Tylenol No. 3, 1 p.o. q.6 h. p.r.n. for pain. 14. Bactroban ointment to wound. DISCHARGE DIAGNOSES: 1. Transient ischemic attacks and carotid stenosis requiring carotid endarterectomy. 2. Atrial fibrillation. 3. Hypertension. 4. Dyslipidemia. HISTORY OF PRESENT ILLNESS: The patient is an 88-year-old woman. She has a history of hypertension and atrial fibrillation. She had a prior stroke as well as some transient ischemic episodes. Her preoperative evaluation showed a carotid artery stenosis of 90% to 95%. She had a left carotid endarterectomy. HOSPITAL COURSE: The patient was admitted. She had a left carotid endarterectomy. Shunt was used and a Dacron patch was placed. The patient tolerated the procedure well. There were no postoperative complications. She had no focal neurological problems. The patient was continued on her antihypertensive regimen as well as her treatment for atrial fibrillation. Her statins were held because of elevated LFTs. She was also seen in consultation by the manager general, Dr. Lewis. DISPOSITION: The patient will be discharged home and will follow up with Dr. Hirsch and Dr. Lewis. Jonny Son MD [facility]/NASIR /[id number]
== END 2018-12-20 19:30 | disposition home or self-care (01) | DRG 37 ==
LOC: OR 10:55 → PACU V 16:14 → ICU 20:51 → MED/SURG 12-19 11:05
PROVIDERS: ADMIT Thoracic Surgery (Cardiothoracic Vascular Surgery); ATTEND Thoracic Surgery (Cardiothoracic Vascular Surgery)
PROC: 03UJ0JZ Supplement Left Common Carotid Artery with Synthetic Substitute, Open Approach (ICD-10-PCS; 2018-12-18)
PROC: 03CJ0ZZ Extirpation of Matter from Left Common Carotid Artery, Open Approach (ICD-10-PCS; principal; 2018-12-18 13:00)
DX: G45.9 Transient cerebral ischemic attack, unspecified (principal); K72.00 Acute and subacute hepatic failure without coma; I50.32 Chronic diastolic (congestive) heart failure; I48.91 Unspecified atrial fibrillation; Z79.01 Long term (current) use of anticoagulants; I10 Essential (primary) hypertension; E78.5 Hyperlipidemia, unspecified; Z86.73 Personal history of transient ischemic attack (TIA), and cerebral infarction without residual deficits; Z87.891 Personal history of nicotine dependence; I35.8 Other nonrheumatic aortic valve disorders; D64.9 Anemia, unspecified; I11.0 Hypertensive heart disease with heart failure; K21.9 Gastro-esophageal reflux disease without esophagitis
CPT/HCPCS: 36415; 80048; 80053; 85025; 85610; 85730; 86850; 86900; 86920; 88304; 88311; 93005; C1768; J1100; J2250; J2270; J2405; J3370; J7030

== ENCOUNTER 2019-12-15 11:30 | Observation (INO) | payer MEDICARE ==
[~2019-12-15] VITALS: Ht 160 cm; Wt 58.6 kg
[2019-12-15] VITALS (7 sets, daily range): BP systolic 138–173; BP diastolic 61–78
[~2019-12-15 11:30] MED LIST changes: +ANASTROZOLE1 MG PO; +PROLIA60 MG/1 ML SC; +ZETIA10 MG PO; +[UNRECOGNIZED DRUG - OTHER] PO
[2019-12-15] MEDS ORDERED: SODIUM CHLORIDE 0.9% 1000ML 1,000 ML IV STA (11:36)
[2019-12-15 12:21] LABS: BASOPHILS # (AUTO) 0.1 (0.0-0.1); BASOPHILS % 0.7 % (0.0-1.0); EOSINOPHILS # (AUTO) 0.1 (0.0-0.4); EOSINOPHILS % 1.9 % (0.0-6.0); HEMATOCRIT 41.1 % (34.2-44.1); HEMOGLOBIN 13.7 g/dL (12.0-16.0); LYMPHOCYTES # (AUTO) 1.7 (1.0-3.2); LYMPHOCYTES % 22.5 % (18.0-39.1); MEAN CORPUSCULAR HEMOGLOBIN 31.2 pg (28-32); MEAN CORPUSCULAR HGB CONC 33.3 g/dL (31-35); MEAN CORPUSCULAR VOLUME 93.6 fL (81-99); MONOCYTES # (AUTO) 0.6 (0.2-0.8); MONOCYTES % 7.9 % (4.4-11.3); NEUTROPHILS # (AUTO) 4.9 (2.1-6.9); NEUTROPHILS % 66.7 % (38.7-80.0); PLATELET COUNT 192 x10e3/uL (140-360); RED BLOOD COUNT 4.39 x10e6/uL (3.6-5.1); RED CELL DISTRIBUTION WIDTH 12.9 % (11.7-14.4)
[2019-12-15 12:42] LABS: ALANINE AMINOTRANSFERASE 10 IU/L (0-55); ALBUMIN/GLOBULIN RATIO 1.6 (0.8-2.0); ALKALINE PHOSPHATASE 50 IU/L (40-150); ANION GAP 12.7 mmol/L (8-16); BLOOD UREA NITROGEN 12 mg/dL (7-26); BUN/CREATININE RATIO 16 (6-25); CALCIUM 9.8 mg/dL (8.4-10.2); CARBON DIOXIDE 22 mmol/L (22-29); CHLORIDE 108 mmol/L (98-107); CREATINE KINASE 38 IU/L (29-168); CREATININE, SERUM 0.73 mg/dL (0.57-1.11); EST GLOMERULAR FILTRATION RATE > 60 ML/MIN (60-); GLUCOSE 114 mg/dL (74-118); POTASSIUM 3.7 mmol/L (3.5-5.1); SODIUM 139 mmol/L (136-145)
--- NOTE | 2019-12-15 12:47 | Diagnostic Imaging Report ---
EXAMINATION: PA and lateral views of the chest. COMPARISON: None CLINICAL HISTORY: Disoriented DISCUSSION: Lines/tubes: None. Lungs: The lungs are well inflated and clear. No pneumonia or pulmonary edema. Pleura: No pleural effusion or pneumothorax. Heart and mediastinum: The cardiomediastinal silhouette is normal. Bones and soft tissues: No acute bony abnormalities. IMPRESSION: No acute cardiopulmonary abnormalities. Signed by: Dr. Maxwell Flores M.D. on 12/15/2019 12:44 PM
[2019-12-15 12:59] LABS: CLARITY,URINE CLEAR (CLEAR); COLOR,URINE YELLOW (YELLOW); KETONES,URINE NEGATIVE (NEGATIVE); LEUKOCYTE ESTERASE ,URINE NEGATIVE (NEGATIVE); NITRITE,URINE NEGATIVE (NEGATIVE); PROTEIN,URINE DIPSTICK NEGATIVE (NEGATIVE)
[2019-12-15 13:00] LABS: BILIRUBIN,URINE NEGATIVE (NEGATIVE); URINE UROBILINOGEN 0.2 mg/dL (0.2 - 1)
--- NOTE | 2019-12-15 13:10 | Diagnostic Imaging Report ---
Exams: Head and cervical spine CTs without IV contrast History: Dizziness; disoriented Comparison studies: Head CT dated 12/02/2018. Technique: Axial images were obtained from the brain. Coronal and sagittal images reconstructed from the axial data. Dose modulation, iterative reconstruction, and/or weight based adjustment of the mA/kV was utilized to reduce the radiation dose to as low as reasonably achievable. Intravenous contrast: None Findings: Scalp: No abnormalities. Bones: No fractures, blastic or lytic lesions. Extra-axial spaces: No masses. No fluid collections. Brain sulci: Appropriate for age. Ventricles: Normal in size and configuration. No hydrocephalus. Parenchyma: No mass, acute hemorrhage or acute cortical vascular insults. Patchy and mildly confluent hypodensities in the supratentorial white matter are nonspecific but most compatible with chronic microvascular ischemic changes. Again seen is a chronic lacunar infarct in the left thalamic capsular region. Sellar/suprasellar region: No abnormalities. Craniocervical junction: The foramen magnum is patent. No Chiari one malformation. IMPRESSION: 1. No new acute intracranial abnormalities when compared to prior head CT dated 12/02/2018. 2. Unchanged generalized volume loss. 3. Unchanged mild to moderate supratentorial chronic microvascular ischemic changes and chronic left thalamocapsular lacunar infarct. Signed by: Dr. Iman Zhou M.D. on 12/15/2019 1:07 PM
[2019-12-15 13:18] LABS: RBC,URINE 0-5 /HPF (0-5); WBC,URINE (MAN) 0-5 /HPF (0-5)
[2019-12-15 13:19] LABS: BACTERIA,URINE RARE /HPF; EPITHELIAL CELLS,URINE FEW /LPF
[2019-12-15] MEDS ORDERED: HYDRALAZINE HCL 20 MG/ML VIAL IV PRN (14:15)
[2019-12-15] MEDS ORDERED: SUCRALFATE1 GM PO (14:59)
[2019-12-15] MEDS ORDERED: OXYBUTYNIN CHLOR5 MG PO (14:59)
[2019-12-15] MEDS ORDERED: PANTOPRAZOLE SO40 MG PO (14:59)
--- NOTE | 2019-12-15 16:35 | NUR ---
PT RECEIVED FROM ER. AAOX1. DAUGHTER AT BEDSIDE. CALL LIGHT WITH IN EASY REACH. BED IS LOW AND LOCKED. SIDE RAILS X2. BED ALARM IS ON. PT DENIES NEEDS AT THIS TIME.
[2019-12-15] MEDS: SODIUM CHLORIDE 0.9% 1000ML 1,000 ML IV SCH ×2 (16:59→23:20)
--- NOTE | 2019-12-15 18:07 | NUR ---
PT DAUGHTER AT BEDSIDE GOING HOME. PT MIGHT NEED A SITTER AT BEDSIDE. INFORMED THE CONCERN TO APPRENTICE EMBALMER. BED ALARM IS ON ZONE 2.
--- NOTE | 2019-12-15 18:30 | NUR ---
CONSULT DR. WINSOME MONTELONGO CALLED.
--- NOTE | 2019-12-15 19:00 | NUR ---
BEDSIDE SHIFT REPORT GIVEN TO THE QUALITY IMPROVEMENT MANAGER RN. DAUGHTER AT BEDSIDE. PT DENIED FURTHER NEEDS.
[2019-12-15 20:24] LABS: CREATINE KINASE MB 0.7 ng/mL (0-5.0)
[2019-12-15] MEDS: TRAZODONE HCL 50 MG TAB PO SCH (21:58)
[2019-12-15] MEDS: EZETIMIBE 10 MG TAB PO SCH (21:58)
[2019-12-16 04:00] VITALS: BP 162/70
[2019-12-16 04:00] LABS: BASOPHILS # (AUTO) 0.1 (0.0-0.1); EOSINOPHILS # (AUTO) 0.2 (0.0-0.4); EOSINOPHILS % 4.3 % (0.0-6.0); HEMATOCRIT 35.9 % (34.2-44.1); HEMOGLOBIN 12.3 g/dL (12.0-16.0); LYMPHOCYTES # (AUTO) 1.1 (1.0-3.2); LYMPHOCYTES % 21.1 % (18.0-39.1); MEAN CORPUSCULAR HEMOGLOBIN 31.6 pg (28-32); MEAN CORPUSCULAR HGB CONC 34.3 g/dL (31-35); MEAN CORPUSCULAR VOLUME 92.3 fL (81-99); MONOCYTES # (AUTO) 0.6 (0.2-0.8); MONOCYTES % 11.5 % (4.4-11.3); NEUTROPHILS # (AUTO) 3.2 (2.1-6.9); NEUTROPHILS % 61.7 % (38.7-80.0); PLATELET COUNT 162 x10e3/uL (140-360); RED BLOOD COUNT 3.89 x10e6/uL (3.6-5.1)
[2019-12-16 04:15] LABS: CREATINE KINASE 29 IU/L (29-168)
[2019-12-16 04:31] LABS: ALANINE AMINOTRANSFERASE 9 IU/L (0-55); ALBUMIN 3.3 g/dL (3.5-5.0); ALBUMIN/GLOBULIN RATIO 1.6 (0.8-2.0); ALKALINE PHOSPHATASE 37 IU/L (40-150); ANION GAP 9.4 mmol/L (8-16); BLOOD UREA NITROGEN 9 mg/dL (7-26); BUN/CREATININE RATIO 14 (6-25); CALCIUM 8.4 mg/dL (8.4-10.2); CARBON DIOXIDE 22 mmol/L (22-29); CHLORIDE 115 mmol/L (98-107); CREATININE, SERUM 0.63 mg/dL (0.57-1.11); EST GLOMERULAR FILTRATION RATE > 60 ML/MIN (60-); GLUCOSE 92 mg/dL (74-118); POTASSIUM 3.4 mmol/L (3.5-5.1); SODIUM 143 mmol/L (136-145)
[2019-12-16] MEDS: SODIUM CHLORIDE 0.9% 1000ML 1,000 ML IV SCH (06:04)
--- NOTE | 2019-12-16 07:20 | NUR ---
PATIENT IS ALERT TO SELF AND IN STABLE CONDITION WITH NO S/S OF RESPIRATORY DISTRESS. NO PAIN VOICED. TELEMETRY APPLIED. ALLEVYN APPLIED TO SACRUM. BED ALARM APPLIED. DAUGHTER PRESENT IN ROOM. CALL LIGHT IS WITHIN REACH, PATIENT INSTRUCTED TO CALL FOR ASSISTANCE NEEDED.
[2019-12-16] MEDS ORDERED: ACETAMINOPHEN 325 MG TAB PO PRN (08:45)
[2019-12-16 09:01] VITALS: BP_SYST 162; BP_SYST 168; BP_DIAS 70; BP_DIAS 72
[2019-12-16] MEDS ORDERED: POTASSIUM CHLORIDE 10MEQ EA PO NR (10:30)
[2019-12-16] MEDS: LOSARTAN POTASSIUM 25 MG TAB PO SCH (10:58)
[2019-12-16] MEDS ORDERED: AMLODIPINE BESYLATE 5 MG TAB PO ONE (11:00)
[2019-12-16 13:01] VITALS: BP 162/75
--- NOTE | 2019-12-16 13:49 | Consultation ---
DATE OF CONSULTATION: Cardiology Consult HISTORY OF PRESENT ILLNESS: Bonita Colon is an 89-year-old female with a primary history of hypertension and hyperlipidemia, admitted complaining of dizziness associated with shortness of breath and generalized weakness and headache that lasted for few hours. The patient denies any chest pain, palpitations, syncopal episode, or fall. The patient also denies of any nausea, vomiting, or fever. The patient was just discharged from the rehab facility last . Daughter reports elevated systolic blood pressures at home equals 190s. PAST MEDICAL HISTORY: Hypertension, hyperlipidemia, and cataracts. CVA in 2003 with very mild right-sided weakness, arthritis, skin cancer. PAST SURGICAL HISTORY: Knee surgery and left carotid artery stent in December of 2018. FAMILY HISTORY: Hypertension. Mother had HI and diabetes and brothers and sisters had cancer. MEDICATIONS: The patient is taking losartan potassium 50 mg daily. Pantoprazole 40 mg daily. Oxybutynin 5 mg daily. [place]-3 fatty acids. Fish oil one capsule daily. Fluoxetine 20 mg daily, ezetimibe 10 mg daily, trazodone 50 mg daily. Sucralfate 1 g tablet daily. Cholecalciferol (vitamin D3) daily. PHYSICAL EXAMINATION: VITAL SIGNS: Blood pressure is 160/70, heart rate of 60 beats per minute, and respirations of 18, SpO2 of 99% on room air. Temperature is 98.3. GENERAL APPEARANCE: She is a well-developed, well-nourished, in no acute distress. HEENT: Head is normocephalic, atraumatic. Pupils are equally round and reactive to light and accommodation. Sclerae nonicteric. Ears are normal. Oral cavity, mucosa is moist. Throat is clear. NECK AND THYROID: Neck is supple. Full range of motion. No cervical lymphadenopathy. SKIN: Warm and dry. No suspicious lesion. HEART: Regular rate and rhythm. S1, S2 are normal with 2/6 diastolic murmur. LUNGS: Clear to auscultation bilaterally. ABDOMEN: Soft, nontender, nondistended. Bowel sounds are present and normal. EXTREMITIES: No edema. No cyanosis. NEUROLOGIC: Nonfocal. Motor strength in upper and lower extremities normal, ambulatory. Sensory exam is intact. IMPRESSION AND PLAN: The patient is an 89-year-old admitted with sinus bradycardia on EKG with heart rates in the 50s, no ST-T changes on EKG. Serial cardiac enzymes. No evidence of ischemia. 1. Monitor on telemetry and report worsening bradycardia. 2. Monitor blood pressure and restart home dose of HERMAN or BP medications. 3. Monitor I's and O's and replace electrolytes as needed. 4. We will do echocardiogram. 5. Further recommendation will follow according to the patient's clinical course. Thank you for this consultation. We will continue to follow. Dictated by Shiela Montalvo NP MD [facility]qu[facility]ZA/NASIR /[id number]
--- NOTE | 2019-12-16 15:17 | NUR ---
PATIENT JUMPING OUT OF BED- BED ALARM SOUNDING OFF. PATIENT REMAINS CONFUSED AND IS BECOMING AGITATED AND PUSHING STAFF AWAY FROM HER STAFF TRIES TO HELP THE PATIENT BACK TO BED. SKIN TEAR NOTED TO RIGHT FOREARM- DRESSING APPLIED. PATIENT REPOSITION BACK TO BED, TELEMETRY REAPPLIED, THREE SIDE RAILS RAISE AND BED ALARM APPLIED.
[2019-12-16] MEDS ORDERED: QUETIAPINE FUMARATE 25 MG TAB PO PRN (15:30)
[2019-12-16] MEDS: SUCRALFATE 1 GM TAB PO SCH (15:33)
[2019-12-16 16:38] VITALS: BP 182/73
--- NOTE | 2019-12-16 19:21 | NUR ---
PATIENT ASSISTE TO HTE RESTROOM AND REPOSITION BACK IN BED. PATIENT IN STABLE CONDITION WITH NO S/S OF RESPIRATORY DISTRESS. NO PAIN VOICED. TELEMETRY APPLIED. DAUGHTER PRESENT IN ROOM. THREE RAILS RAISED AND BED ALARM APPLIED. CALL LIGHT IS WITHIN REACH, PATIENT INSTRUCTED TO CALL FOR ASSISTANCE NEEDED. BEDSIDE SHIFT REPORT GIVEN TO ONCOMING NURSE.
[2019-12-16 20:00] VITALS: BP 107/65
[2019-12-16] MEDS: TRAZODONE HCL 50 MG TAB PO SCH (20:44)
[2019-12-16] MEDS: EZETIMIBE 10 MG TAB PO SCH (20:44)
[2019-12-16] MEDS ORDERED: EZETIMIBE 10 MG TAB PO SCH (21:00)
[2019-12-17 00:05] VITALS: BP 103/53
[2019-12-17 04:00] VITALS: BP 128/58
--- NOTE | 2019-12-17 07:03 | NUR ---
Bedside report and rounds completed with oncoming nurse. Patient in bed with call light within reach. No issues or concerns noted.
[2019-12-17] MEDS ORDERED: PANTOPRAZOLE SOD 40 MG TABEC PO SCH (07:30)
[2019-12-17 08:25] VITALS: BP 149/78
[2019-12-17] MEDS: LOSARTAN POTASSIUM 25 MG TAB PO SCH (08:30)
[2019-12-17] MEDS: SUCRALFATE 1 GM TAB PO SCH (08:30)
[2019-12-17] MEDS ORDERED: AMLODIPINE BESYLATE 5 MG TAB PO SCH (09:00)
[2019-12-17] MEDS ORDERED: FLUOXETINE HCL 20 MG CAP PO SCH (09:00)
[2019-12-17] MEDS ORDERED: ANASTROZOLE 1 MG TAB PO SCH (09:00)
[2019-12-17] MEDS ORDERED: OXYBUTYNIN CHLORIDE 5 MG TAB PO SCH (09:00)
[2019-12-17 09:31] VITALS: BP 149/78
--- NOTE | 2019-12-17 09:53 | NUR ---
FIRER WATERTENDER CALLED TO SPEAK WITH PATIENT'S DAUGHTER
--- NOTE | 2019-12-17 10:05 | NUR ---
Spoke to daughter Kasey at bedside regarding home health order. She states that pt was just at [facility] and that they were supposed to set up home health. CM called [facility]. Was told set up with [facility]. CM called Camila with [facility]. She states she informed the facility that they were unable to take pt's insurance. CM back to pt's bedside and relayed information to pt's daughter. She states to use any company that will take her insurance. Choice letter signed for [facility], [facility], and [facility]. Copy of choice letter with each company's contact information given to Kasey. Informed her that referral will be sent to [facility]. CM asked her to call HH company if she does not hear from them within 24 hrs of discharge. CM business card left for daughter with any questions/concerns. Signed letter placed in chart. Home health referral faxed to [facility] Elayne Vázquez notified of referral and DC for today.
[2019-12-17] MEDS ORDERED: POTASSIUM CHLORIDE 10MEQ EA PO NR (10:30)
[2019-12-17 10:56] VITALS: BP 142/69
--- NOTE | 2019-12-17 12:48 | NUR ---
SPOKE WITH PT AND DAUGHTER AT BEDSIDE AFTER THEY REQUESTED TO SEE INSULATION HELPER, ASKED ABOUT ADULT DAY CENTERS OR PROVIDER CARE, GAVE COMMUNITY RESOURCES AND LET KNOW SOME DIFFERENT OPTIONS AVAILABLE.
--- NOTE | 2019-12-17 13:49 | NUR ---
DISCHARGE HOME WITH HOME HEALTH. PATIENT OFF THE UNIT AT 1339 PER WHEELCHAIR ACCOMPANIED BY PCT TO THE FRONT LOBBY. PATIENT IN STABLE CONDITION WITH NO S/S OF RESPIRATORY DISTRESS. NO PAIN VOICED. IV REMOVED WITH TIP INTACT. DISCHARGE TEACHING, INSTRUCTIONS, AND MEDICATION GIVEN TO THE PATIENT'S DAUGHTER D/T THE PATIENT BEING CONFUSED. ALL PERSONAL ITEMS TAKEN WITH THE PATIENT AND HER DAUGHTER.
--- NOTE | 2019-12-18 09:46 | NUR ---
OLYA was informed by Elayne Vázquez with [facility] that they were told pt is set up with [facility]. OLYA called and spoke with Nuvia with intake at [facility]. She said that they received auth on pt. OLYA informed her that pt discharged from facility yesterday. She will schedule for pt to be seen today or tomorrow. She will reach out to pt's daughter Kasey this morning. Nuvia asked OLYA to send clinicals. OLYA called pt's daughter Kasey Norman and updated her. Referral faxed to [facility] at [phone] / .
== END 2019-12-17 13:39 | disposition home or self-care (01) ==
LOC: ER 11:30 → ERHOLD 14:04 → MED/SURG2 16:27
PROVIDERS: ADMIT Internal Medicine; ATTEND Internal Medicine
DX: R00.1 Bradycardia, unspecified (principal); R42 Dizziness and giddiness; R55 Syncope and collapse; I10 Essential (primary) hypertension; Z85.3 Personal history of malignant neoplasm of breast; I16.0 Hypertensive urgency; R53.1 Weakness; F03.90 Unspecified dementia, unspecified severity, without behavioral disturbance, psychotic disturbance, mood disturbance, and anxiety; E78.5 Hyperlipidemia, unspecified; I69.351 Hemiplegia and hemiparesis following cerebral infarction affecting right dominant side; Z82.49 Family history of ischemic heart disease and other diseases of the circulatory system; Z83.3 Family history of diabetes mellitus; Z80.9 Family history of malignant neoplasm, unspecified
CPT/HCPCS: 36415 ×2; 70450; 71046; 80053 ×2; 81001; 82550 ×2; 82553 ×2; 83880; 84484 ×2; 85025 ×2; 93005 ×2; 93306; 97116; 97139 ×2; 97161; 99284; G0378 ×3; J7030 ×2; S0164; J0360